=== PATIENT | male | born 1990 | race Caucasian/White ===

== ENCOUNTER 2021-05-07 16:43 | Emergency (ER) | payer OTHER, SELFPAY ==
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
[2021-05-07 16:54] VITALS: BP 124/63; PULSE 123; RESP 16; TEMP 37.7; O2SAT 99
[2021-05-07] MEDS: TETANUS,DIPHTHERIA,AC PERTUSSIS ADULT (0.5 ML) BOOSTRIX IM (17:29)
[2021-05-07] MEDS: cefTRIAXone 1 GM, LIDOCAINE HCL 1% LOCAL INJ 2.1 ML IM (17:30)
== END 2021-05-07 17:45 | disposition home or self-care (01) ==
PROVIDERS: Emergency Provider Nurse Practitioner
DX: L03.113 Cellulitis of right upper limb (principal); Z23 Encounter for immunization
CPT/HCPCS: 73130; 90471; 90715; 96372; 99213; G0463; J0696

== ENCOUNTER 2024-09-24 10:52 | Emergency (ER) | payer OTHER, SELFPAY ==
--- NOTE | ~2024-09-24 | CT_ITS ---
EXAMINATION: CT cervical spine wo con DATE: 09/24/2024 11:45 INDICATION: Midline cervical tenderness post trauma TECHNIQUE: Computed tomography (CT) of the cervical spine was performed without intravenous contrast. Automated exposure control and iterative reconstruction technique were employed. The dose-length pro duct was 439.16 mGy-cm. COMPARISON: None FINDINGS: Mild lower cervical levocurvature. Straightening of the normal cervical doses which could be position al or due to muscle spasm. Likely developmental anterior spinal fusion at C5-C6 with decreased AP dim ension to the vertebral bodies at the level of the small disc space. Vertebral body heights are diana l. No fracture. Mild disc height loss and moderate right-sided and mild left-sided uncovertebral oste oarthritis at C6-C7. Small posterior disc osteophyte complex at C6-C7 resulting in mild central canal stenosis at this level. There is fusion across the left C5-C6 facet joint and severe joint space parviz rowing at the right facet joint that this level. There is additional severe facet osteoarthritis on t he left at C2-C3 and on the right at C4-C5. Mild to moderate facet osteoarthritis and a few additiona l cervical levels. There is moderate neural from stenosis on the left at C2-C3 and mild neural forami nal stenosis bilaterally at C3-C4, C6-C7 and on the right at C4-C5. Cervical soft tissues are unremar kable. Visualized apices of lungs are clear. IMPRESSION: 1. Moderate cervical spondylosis with likely developmental anterior fusion at C5-C6. No acute osseous abnormality. Reviewed, dictated and finalized at location B. IMPRESSION: 1. Moderate cervical spondylosis with likely developmental anterior fusion at C 5-C6. No acute osseous abnormality.
[2024-09-24 10:59] VITALS: BP 154/92; PULSE 95; RESP 18; TEMP 37; O2SAT 100
--- OUTSIDE RECORDS SUMMARY | 2024-09-24 11:40 | XMS_ITS | Clinical Summary ---
Author Organization [facility] Address [address] [place] [address] Care Team Providers Care Finishing Supervisor Name Role Phone Pcp, Josh Lemus Im-Fm Primary Care Provider Unavailable Source Comments [facility],non-owned Affiliates and Associated Physician Practices is amultiple site organization consisting of ambulatory clinics and hospital sitesin [place], [place], [place] and [place]. This disclosure is being madepursuant to the Care Everywhere program and may not contain all information available regarding this patient. Last updated 18.[facility] Allergies No known active allergies Medications * Be aware that medications may not be up to date on this document. Alwaysverify current medications with the patient. Medication Sig Dispensed Refills Start Date End Date Status hydrocortisone, rectal, (ANUSOL-HC) 2.5 % cream Insert into the rectum at bedtime 30 g 12/02/2018 Active Active Problems No known active problems Immunizations Name Administration Dates Next Due TDAP (7yrs+) 11/03/2016 Family History Medical History Relation Name Comments Drug Abuse Father Cancer - Other Maternal Grandmother Other Mother Relation Name Status Comments Father Maternal Grandmother Mother she was murdere d Social History Tobacco Use Types Packs/Day Years Used Date Smoking Tobacco: Never Smokeless Tobacco: Never Alcohol Use Standard Drinks/Week Comments Yes 0 (1 standard drink = 0.6 oz pur e alcohol) rarely Sex and Gender Information Value Date Recorded Sex Assigned at Not on file Gender Identity Not on file Sexual Orientation Not on file Last Filed Vital Signs Vital Sign Reading Time Taken Comments Blood Pressure 128/68 12/02/2018 1:52 PM CDT Pulse 78 12/02/2018 1:52 PM CDT Temperature - - Respiratory Rate - - Oxygen Saturation 99% 12/02/2018 1:52 PM CDT Inhaled Oxygen Concentration - - Weight 83 kg (183 lb) 12/02/2018 1:52 PM CDT Height 180.3 cm (5' 11 ) 12/02/2018 1:52 PM CDT Body Mass Index 25.52 12/02/2018 1:52 PM CDT Plan of Treatment Health Maintenance Due Date Last Done Comments HIV SCREENING 2006 HEPATITIS C SCREENING 03/19/2009 HEPATITIS B VACCINE (1 of 3 - 19+ 3-dose series) 2010 COVID-19 VACCINE ( - 2023-2 5 season) 2024 DEPRESSION SCREENING 06/17/2024 INFLUENZA VACCINE (Season Ended) 2025 DTAP/TDAP/TD VACCINES (2 - T d or Tdap) 11/03/2026 11/03/2016 ZOSTER VACCINE (1 of 2) 2041 HIB VACCINE Aged Out No longer eligi ble based on patient's age to complete this topic HPV VACCINE Aged Out No longer eligi ble based on patient's age to complete this topic MENINGOCOCCAL (Group B) VACC INE SHARED DECISION-MAKING Aged Out No longer eligibl e based on patient's age to complete this topic MENINGOCOCCAL GROUPS A/C/Y/W VACCINE Aged Out No longer eligible b ased on patient's age to complete this topic PNEUMOCOCCAL VACCINE Aged Out No long er eligible based on patient's age to complete this topic Care Teams Finishing Supervisor Relationship Specialty Start Date End Date Josh Gonzáles -Fm PCP - General 01/11/23
--- OUTSIDE RECORDS SUMMARY | 2024-09-24 11:40 | XMS_ITS | Data Portability ---
Author Organization [place] [facility], Mike Magaña Address [address] [place] [id number] Care Team Providers Care Press Hand Name Role Phone MARIANELA AMARAL Primary Care Provider Unavailabl e Assessment No assessment recorded. Plan of Treatment Reminders Order Date Submit Date Provider Last Modified By Organization Details Last Modified Time Details Appointments InPerson; PE, Routine 2024 04:00P M Marianela Amaral MD Not available Not available Not available Lab urinalysi s, dipstick 2023 024 DAWES Cheo, [address] [place], [address], 07/29/2023 14:55:21 C reactive protein, QN, serum or plasma 2023 024 [facility] [place], [address], 07/31/2023 08:23:54 erythrocy te sedimenta tion rate by terrell dunham method 2023 024 [facility], [address] [place] [address], [address], 07/31/2023 08:23:54 Referral dermatolo gist referral 2024 025 [email or web address] [place] [facility] Referral [facility]ators, [address] [place] [address] [place] [address], [place], [address], 09/01/2024 10:03:27 psychiatr ist referral 2024 025 [email or web address] [facility] Referral Coordinators, [address] [facility], [address], [facility] [place], [address], 09/22/2024 13:51:50 dermatolo gist referral 2023 024 [email or web address] [facility], [address] [facility], [address], [place], [address], 12/11/2023 11:11:47 Procedures None recorded. Surgeries None recorded. Imaging None recorded. Medication Orders triamcino lone acetonide 0.1 % topical cream 2024 025 [facility], [address] [place] [address], [id number], 07/15/2024 18:13:49 hydrocort isone 2.5 % topical cream 2024 025 [facility], [address] [place] [address], [id number], 07/15/2024 18:13:49 triamcino lone acetonide 0.1 % topical cream 2023 024 [facility], [address] [place] [address], [id number], 10/11/2023 15:43:38 hydrocort isone 2.5 % topical cream 2023 024 [facility], [address] [place] [address], [id number], 10/11/2023 15:43:38 hydrocort isone 2.5 % topical cream 2023 024 [facility], [address] [place] [address], [id number], 07/29/2023 14:37:54 Patient TargetsNo targets recorded. Patient InstructionsNo instructions recorded. Reason for Referral Pet Care Worker Referral for P soriasis Referring Physician: Marianela Amaral, Family Medicine, Encounter Date: 10/11/2023 Pet Care Worker Referral for P soriasis Referring Physician: Marianela Amaral [facility], Encounter Date: 07/15/2024 Psychiatrist Referral for Ad ult attention deficit hyperactivity disorder Referring Physician: Marianela Amaral [facility], Encounter Date: 07/15/2024 Results Created Date Observation Date Name Description Value Unit Range Abnormal Flag Note LastModifiedBy Organization Detail LastModifiedTime 07/10/19 24 07/11/2023 CBC WITH DIFFE RENTI AL/PL ATELE T WBC 5.9 x10e3 /uL 3.4-10 .8 Not Available [facility] ([facility]) [address] [place], [address], 07/11/2023 13:24:42 07/10/19 24 07/11/2023 CBC WITH DIFFE RENTI AL/PL ATELE T RBC 5.69 x10e6 /uL 4.14-5 .80 Not Available [facility] ([facility]) [address] [place], [address], 07/11/2023 13:24:42 07/10/19 24 07/11/2023 CBC WITH DIFFE RENTI AL/PL ATELE T hemoglobin 17.0 g/dL 13.0-1 7.7 Not Available [facility] ([facility]) [address] [place], [address], 07/11/2023 13:24:42 07/10/1907/11/2023 CBC WITH DIFFE RENTI AL/PL ATELE T hematocrit 50.4 % 37.5-5 1.0 Not Available [facility] ([facility]) [address] [place], [address], 07/11/2023 13:24:42 07/10/19 24 07/11/2023 CBC WITH DIFFE RENTI AL/PL ATELE T MCV 89 fL 79-97 Not Available [facility] ([facility]) [address] [place], [address], 07/11/2023 13:24:42 07/10/19 24 07/11/2023 CBC WITH DIFFE RENTI AL/PL ATELE T MCH 29.9 pg 26.6-3 3.0 Not Available [facility] ([facility]) [address] [facility], [place], [address], 07/11/2023 13:24:42 07/10/19 24 07/11/2023 CBC WITH DIFFE RENTI AL/PL ATELE T MCHC 33.7 g/dL 31.5-3 5.7 Not Available [facility] ([facility]) [address] [place], [address], 07/11/2023 13:24:42 07/10/19 24 07/11/2023 CBC WITH DIFFE RENTI AL/PL ATELE T RDW 12.5 % 11.6-1 5.4 Not Available [facility] ([facility]) [address] [facility], [place], [address], 07/11/2023 13:24:42 07/10/19 24 07/11/2023 CBC WITH DIFFE RENTI AL/PL ATELE T platelets 212 x10e3 /uL 150-45 0 Not Available [facility] ([facility]) [address] [place], [address], 07/11/2023 13:24:42 07/10/1907/11/2023 CBC WITH DIFFE RENTI AL/PL ATELE T neutrophils 65 % not estab. Not Available [facility] ([facility]) [address] [place], [address], 07/11/2023 13:24:42 07/10/19 24 07/11/2023 CBC WITH DIFFE RENTI AL/PL ATELE T lymphs 25 % not estab. Not Available [facility] ([facility]) [address] [place], [address], 07/11/2023 13:24:42 07/10/19 24 07/11/2023 CBC WITH DIFFE RENTI AL/PL ATELE T monocytes 7 % not estab. Not Available [facility] ([facility]) [address] [place], [address], 07/11/2023 13:24:42 07/10/19 24 07/11/2023 CBC WITH DIFFE RENTI AL/PL ATELE T eos 2 % not estab. Not Available [facility] ([facility]) [address] [place], [address], 07/11/2023 13:24:42 07/10/1907/11/2023 CBC WITH DIFFE RENTI AL/PL ATELE T basos 1 % not estab. Not Available [facility] ([facility]) [address] [place], [address], 07/11/2023 13:24:42 07/10/19 24 07/11/2023 CBC WITH DIFFE RENTI AL/PL ATELE T immature cells STOVE TENDER Not Available [facility] ([facility]) [address] [place], [address], 07/11/2023 13:24:42 07/10/19 24 07/11/2023 CBC WITH DIFFE RENTI AL/PL ATELE T neutrophils (absolute) 3.9 x10e3 /uL 1.4-7. 0 Not Available [facility] ([facility]) [address] [place], [address], 07/11/2023 13:24:42 07/10/19 24 07/11/2023 CBC WITH DIFFE RENTI AL/PL ATELE T lymphs (absolute) 1.5 x10e3 /uL 0.7-3. 1 Not Available [facility] ([facility]) [address] [place], [address], 07/11/2023 13:24:42 07/10/19 07/11/2023 CBC WITH DIFFE RENTI AL/PL ATELE T monocytes(ab solute) 0.4 x10e3 /uL 0.1-0. 9 Not Available [facility] ([facility]) [address] [facility], [place], [address], 07/11/2023 13:24:42 07/10/19 24 07/11/2023 CBC WITH DIFFE RENTI AL/PL ATELE T eos (absolute) 0.1 x10e3 /uL 0.0-0. 4 Not Available [facility] ([facility]) [address] [facility], [place], [address], 07/11/2023 13:24:42 07/10/1907/11/2023 CBC WITH DIFFE RENTI AL/PL ATELE T baso (absolute) 0.0 x10e3 /uL 0.0-0. 2 Not Available [facility] ([facility]) [address] [facility], [place], [address], 07/11/2023 13:24:42 07/10/19 24 07/11/2023 CBC WITH DIFFE RENTI AL/PL ATELE T immature granulocytes 0 % not estab. Not Available [facility] ([facility]) [address] [facility], [place], [address], 07/11/2023 13:24:42 07/10/1907/11/2023 CBC WITH DIFFE RENTI AL/PL ATELE T immature grans (abs) 0.0 x10e3 /uL 0.0-0. 1 Not Available [facility] ([facility]) [address] [facility], [place], [address], 07/11/2023 13:24:42 07/10/19 24 07/11/2023 CBC WITH DIFFE RENTI AL/PL ATELE T NRBC STOVE TENDER Not Available [facility] ([facility]) [address] [facility], [place], [address], 07/11/2023 13:24:42 07/10/19 24 07/11/2023 CBC WITH DIFFE ERIC AL/PL ATELE T hematology comments: STOVE TENDER Not Available [facility] ([facility]) [address] [facility], [place], [address], 07/11/2023 13:24:42 07/10/19 24 07/11/2023 COMP. METAB OLIC PANEL (14) glucose 85 mg/dL 70-99 Not Available [facility] ([facility]) [address] [facility], [place], [address], 07/11/2023 13:24:43 07/10/19 24 07/11/2023 COMP. METAB OLIC PANEL (14) BUN 15 mg/dL 6-20 Not Available [facility] ([facility]) [address] [facility], [place], [address], 07/11/2023 13:24:43 07/10/19 24 07/11/2023 COMP. METAB OLIC PANEL (14) creatinine 0.98 mg/dL 0.76-1 .27 Not Available [facility] ([facility]) [address] [facility], [place], [address], 07/11/2023 13:24:43 07/10/19 24 07/11/2023 COMP. METAB OLIC PANEL (14) eGFR 105 mL/mi n/1.7 3 >59 Not Available [facility] ([facility]) [address] [place], [address], 07/11/2023 13:24:43 07/10/19 24 07/11/2023 COMP. METAB OLIC PANEL (14) BUN/creatini ne ratio 15 9-20 Not Available [facility] ([facility]) [address] [place], [address], 07/11/2023 13:24:43 07/10/19 24 07/11/2023 COMP. METAB OLIC PANEL (14) sodium 141 mmol/ L 134-14 4 Not Available [facility] ([facility]) [address] [place], [address], 07/11/2023 13:24:43 07/10/19 24 07/11/2023 COMP. METAB OLIC PANEL (14) potassium 3.8 mmol/ L 3.5-5. 2 Not Available [facility] ([facility]) [address] [place], [address], 07/11/2023 13:24:43 07/10/19 24 07/11/2023 COMP. METAB OLIC PANEL (14) chloride 100 mmol/ L 96-106 Not Available [facility] ([facility]) [address] [place], [address], 07/11/2023 13:24:43 07/10/19 24 07/11/2023 COMP. METAB OLIC PANEL (14) carbon dioxide, total 26 mmol/ L 20-29 Not Available [facility] ([facility] [address] [facility] [place], [address], 07/11/2023 13:24:43 07/10/19 24 07/11/2023 COMP. METAB OLIC PANEL (14) calcium 9.8 mg/dL 8.7-10 .2 Not Available [facility] ([facility] [address] [facility] [place], [address], 07/11/2023 13:24:43 07/10/19 24 07/11/2023 COMP. METAB OLIC PANEL (14) protein, total 7.3 g/dL 6.0-8. 5 Not Available [facility] ([facility]) [address] [facility] [place], [address], 07/11/2023 13:24:43 07/10/19 24 07/11/2023 COMP. METAB OLIC PANEL (14) albumin 5.1 g/dL 4.1-5. 1 Not Available [facility] ([facility]) [address] [facility] [place], [address], 07/11/2023 13:24:43 07/10/19 24 07/11/2023 COMP. METAB OLIC PANEL (14) globulin, total 2.2 g/dL 1.5-4. 5 Not Available [facility] ([facility]) [address] [facility] [place], [address], 07/11/2023 13:24:43 07/10/19 24 07/11/2023 COMP. METAB OLIC PANEL (14) A/G ratio 2.3 1.2-2. 2 above high normal Not Available [facility] ([facility]) [address] [place], [address], 07/11/2023 13:24:43 07/10/19 24 07/11/2023 COMP. METAB OLIC PANEL (14) bilirubin, total 1.1 mg/dL 0.0-1. 2 Not Available [facility] ([facility]) [address] [facility] [place], [address], 07/11/2023 13:24:43 07/10/19 24 07/11/2023 COMP. METAB OLIC PANEL (14) alkaline phosphatase 65 IU/L 44-121 Not Available [facility] ([facility]) [address] [facility] [place], [address], 07/11/2023 13:24:43 07/10/19 24 07/11/2023 COMP. METAB OLIC PANEL (14) AST (SGOT) 30 IU/L 0-40 Not Available [facility] ([facility]) [address] [facility] [place], [address], 07/11/2023 13:24:43 07/10/19 24 07/11/2023 COMP. METAB OLIC PANEL (14) ALT (SGPT) 26 IU/L 0-44 Not Available [facility] ([facility]) [address] [facility] [place], [address], 07/11/2023 13:24:43 07/10/19 24 07/11/2023 LIPID PANEL W/ CHOL/ HDL RATIO cholesterol, total 170 mg/dL 100-19 9 Not Available [facility] ([facility]) [address] [place], [address], 07/11/2023 13:24:43 07/10/19 24 07/11/2023 LIPID PANEL W/ CHOL/ HDL RATIO triglyceride s 41 mg/dL 0-149 Not Available [facility] ([facility]) [address] [place], [address], 07/11/2023 13:24:43 07/10/19 24 07/11/2023 LIPID PANEL W/ CHOL/ HDL RATIO HDL cholesterol 86 mg/dL >39 Not Available [facility] ([facility]) [address] [facility], [place], [address], 07/11/2023 13:24:43 07/10/19 24 07/11/2023 LIPID PANEL W/ CHOL/ HDL RATIO VLDL cholesterol laureano 9 mg/dL 5-40 Not Available [facility] ([facility]) [address] [place], [address], 07/11/2023 13:24:43 07/10/19 24 07/11/2023 LIPID PANEL W/ CHOL/ HDL RATIO LDL chol calc ([facility]) 75 mg/dL 0-99 Not Available [facility] ([facility]) [address] [place], [address], 07/11/2023 13:24:43 07/10/19 24 07/11/2023 LIPID PANEL W/ CHOL/ HDL RATIO comment: STOVE TENDER Not Available [facility] ([facility]) [address] [place], [address], 07/11/2023 13:24:43 07/10/19 24 07/11/2023 LIPID PANEL W/ CHOL/ HDL RATIO T. chol/HDL ratio 2.0 ratio 0.0-5. 0 T. Chol/ HDL Ratio Men Women 1/2 Avg.R isk 3.4 3.3 Avg.R isk 5.0 4.4 2X Avg.R isk 9.6 7.1 3X Avg.R isk 23.4 11.0 Not Available [facility] ([facility]) [address] [facility], [place], [address], 07/11/2023 13:24:43 07/10/19 24 07/11/2023 HEMOG LOBIN A1C hemoglobin A1C 5.0 % 4.8-5. 6 Predi abete s: 5.7 - 6.4 Diabe annie: >6.4 Glyce imelda contr ol for adult s with diabe annie: <7.0 Not Available [facility] ([facility]) [address] [facility], [place], [address], 07/11/2023 13:24:44 07/10/1907/11/2023 HIV AB/P2 4 AG WITH REFLE X HIV Ab/P24 Ag screen Non Reacti ve non reacti ve HIV Negat colton HIV-1 /HIV- 2 antib odies and HIV-1 p24 antig en were NOT detec shruthi. There is no labor atory evide nce of HIV infec tion. Not Available [facility] ([facility]) [address] [facility], [place], [address], 07/11/2023 13:24:44 07/10/1907/11/2023 HCV ANTIB RACHEL hep C virus Ab Non Reacti ve non reacti ve HCV antib rachel alone does not diffe renti ate betwe en previ ously resol newton infec tion and activ e infec tion. Equiv ocal and React colton HCV antib rachel resul ts shoul d be follo wed up with an HCV RNA test to suppo rt the diagn osis of activ e HCV infec tion. Not Available [facility] ([facility]) [address] [facility], [place], [address], 07/11/2023 13:24:45 07/10/19 24 07/11/2023 TSH REFLE X TO T4F TSH 1.260 uIU/m L 0.450- 4.500 Not Available [facility] ([facility]) [address] [facility], [place], [address], 07/11/2023 13:24:46 07/29/19 24 07/30/2023 SEDIM ENTAT ION RATE- WESTE RGREN sedimentatio n rate-westerg willem 2 mm/HR 0-15 Not Available [facility] ([facility]) [address] [facility], [place], [address], 07/31/2023 08:23:54 07/29/19 24 07/30/2023 C-AIDE CTIVE PROTE IN, QUANT C-reactive protein, quant <1 mg/L 0-10 Not Available [facility] ([facility]) [address] [facility], [place], [address], 07/31/2023 08:23:54 07/29/19 24 07/31/2023 URINE CULTU RE, ROUTI NE urine culture, routine Final report Not Available [facility] ([facility]) [address] [facility], [place], [address], 07/31/2023 08:23:55 07/29/19 24 07/31/2023 URINE CULTU RE, ROUTI NE result 1 No growth Not Available [facility] ([facility]) [address] [facility], [place], [address], 07/31/2023 08:23:55 07/29/19 24 07/29/2023 urina lysis , dipst ick Color Yellow Not Available [employer] [address] [place], [address], 07/29/2023 14:29:09 07/29/19 24 07/29/2023 urina lysis , dipst ick Appearance Clear Not Available [employer] [address] [place], [address], 07/29/2023 14:29:07/29/19 24 07/29/2023 urina lysis , dipst ick Leukocytes negati ve Not Available [employer] [address] [place] [address], [phone], 07/29/2023 14:29:07/29/19 24 07/29/2023 urina lysis , dipst ick Nitrites negati ve Not Available [employer] [address] [place] [address], [phone], 07/29/2023 14:29:07/29/19 24 07/29/2023 urina lysis , dipst ick Urobilinogen Normal (0.2) Not Available [employer] [address] [place] [address], [phone], 07/29/2023 14:29:07/29/19 24 07/29/2023 urina lysis , dipst ick Protein negati ve Not Available [employer] [address] [place] [address], [phone], 07/29/2023 14:29:07/29/19 24 07/29/2023 urina lysis , dipst ick pH 7.5 Not Available [employer] [address] [place] [address], [phone], 07/29/2023 14:29:07/29/19 24 07/29/2023 urina lysis , dipst ick Blood small + Not Available [employer] [address] [place] [address], [phone], 07/29/2023 14:29:07/29/19 24 07/29/2023 urina lysis , dipst ick Specific [place] 1.025 Not Available [facility] [address] [place] [address], [phone], 07/29/2023 14:29:07/29/19 24 07/29/2023 urina lysis , dipst ick Ketone negati ve Not Available [employer] [address] [place], [address], 07/29/2023 14:29:09 07/29/19 24 07/29/2023 urina lysis , dipst ick Bilirubin negati ve Not Available [employer] [address] [place], [address], 07/29/2023 14:29:09 07/29/19 24 07/29/2023 urina lysis , dipst ick Glucose negati ve Not Available [employer] [address] [place], [address], 07/29/2023 14:29:09 08/01/19 24 08/02/2023 URINA LYSIS , COMPL ETE specific gravity 1.019 1.005- 1.030 Not Available [facility] ([facility]) [address] [place], [address], 08/02/2023 11:15:54 08/01/19 24 08/02/2023 URINA LYSIS , COMPL ETE pH 7.5 5.0-7. 5 Not Available [facility] ([facility]) [address] [place], [address], 08/02/2023 11:15:54 08/01/19 24 08/02/2023 URINA LYSIS , COMPL ETE urine-color Yellow yellow Not Available [facility] ([facility]) [address] [place], [address], 08/02/2023 11:15:54 08/01/19 24 08/02/2023 URINA LYSIS , COMPL ETE appearance Clear clear Not Available [facility] ([facility]) [address] [place], [address], 08/02/2023 11:15:54 08/01/19 24 08/02/2023 URINA LYSIS , COMPL ETE WBC esterase Negati ve negati ve Not Available [facility] ([facility]) [address] [facility], [place], [address], 08/02/2023 11:15:54 08/01/19 24 08/02/2023 URINA LYSIS , COMPL ETE protein Negati ve negati ve/tra ce Not Available [facility] ([facility]) [address] [facility], [place], [address], 08/02/2023 11:15:54 08/01/19 24 08/02/2023 URINA LYSIS , COMPL ETE glucose Negati ve negati ve Not Available [facility] ([facility]) [address] [place], [address], 08/02/2023 11:15:54 08/01/19 24 08/02/2023 URINA LYSIS , COMPL ETE ketones Negati ve negati ve Not Available [facility] ([facility]) [address] [place], [address], 08/02/2023 11:15:54 08/01/19 24 08/02/2023 URINA LYSIS , COMPL ETE occult blood Negati ve negati ve Not Available [facility] ([facility]) [address] [place], [address], 08/02/2023 11:15:54 08/01/19 24 08/02/2023 URINA LYSIS , COMPL ETE bilirubin Negati ve negati ve Not Available [facility] ([facility]) [address] [place], [address], 08/02/2023 11:15:54 08/01/19 24 08/02/2023 URINA LYSIS , COMPL ETE urobilinogen ,semi-qn 1.0 mg/dL 0.2-1. 0 Not Available [facility] ([facility]) [address] [place], [address], 08/02/2023 11:15:54 08/01/19 24 08/02/2023 URINA LYSIS , COMPL ETE nitrite, urine Negati ve negati ve Not Available [facility] ([facility]) [address] [facility], [place], [address], 08/02/2023 11:15:54 08/01/19 24 08/02/2023 URINA LYSIS , COMPL ETE microscopic examination Commen t Micro scopi c follo ws if indic ated. Not Available [facility] ([facility]) [address] [facility], [place], [address], 08/02/2023 11:15:54 08/01/19 24 08/02/2023 URINA LYSIS , COMPL ETE microscopic examination See below: Micro scopi c was indic ated and was perfo rmed. Not Available [facility] ([facility]) [address] [facility], [place], [address], 08/02/2023 11:15:54 08/01/19 24 08/02/2023 URINA LYSIS , COMPL ETE WBC None seen /hpf 0 - 5 Not Available [facility] ([facility]) [address] [facility], [place], [address], 08/02/2023 11:15:54 08/01/19 24 08/02/2023 URINA LYSIS , COMPL ETE RBC None seen /hpf 0 - 2 Not Available [facility] ([facility]) [address] [facility], [place], [address], 08/02/2023 11:15:54 08/01/19 24 08/02/2023 URINA LYSIS , COMPL ETE epithelial cells (non renal) None seen /hpf 0 - 10 Not Available [facility] ([facility]) [address] [facility], [place], [address], 08/02/2023 11:15:54 08/01/19 24 08/02/2023 URINA LYSIS , COMPL ETE epithelial cells (renal) STOVE TENDER Not Available [facility] ([facility]) [address], [place], [address], 08/02/2023 11:15:54 08/01/19 24 08/02/2023 URINA LYSIS , COMPL ETE casts None seen /lpf none seen Not Available [facility] ([facility]) [address], [place], [address], 08/02/2023 11:15:54 08/01/19 24 08/02/2023 URINA LYSIS , COMPL ETE cast type STOVE TENDER Not Available [facility] ([facility]) [address], [place], [address], 08/02/2023 11:15:54 08/01/19 24 08/02/2023 URINA LYSIS , COMPL ETE crystals STOVE TENDER Not Available [facility] ([facility]) [address], [place], [address], 08/02/2023 11:15:54 08/01/19 24 08/02/2023 URINA LYSIS , COMPL ETE crystal type STOVE TENDER Not Available [facility] ([facility]) [address], [place], [address], 08/02/2023 11:15:54 08/01/19 24 08/02/2023 URINA LYSIS , COMPL ETE mucus threads STOVE TENDER Not Available [facility] ([facility]) [address], [place], [address], 08/02/2023 11:15:54 08/01/19 24 08/02/2023 URINA LYSIS , COMPL ETE bacteria None seen none seen/f ew Not Available [facility] ([facility]) [address], [place], [address], 08/02/2023 11:15:54 08/01/19 24 08/02/2023 URINA LYSIS , COMPL ETE yeast STOVE TENDER Not Available [facility] ([facility]) [address], [place], [address], 08/02/2023 11:15:54 08/01/19 24 08/02/2023 URINA LYSIS , COMPL ETE trichomonas STOVE TENDER Not Available [facility] ([facility]) [address] [facility], [place], [address], 08/02/2023 11:15:54 08/01/19 24 08/02/2023 URINA LYSIS , COMPL ETE comment STOVE TENDER Not Available [facility] [facility] [address], [place], [address], 08/02/2023 11:15:54 09/15/19 25 09/16/2024 QUANT IFERO N-TB GOLD PLUS quantiferon incubation Incuba tion perfor med. Not Available [facility] ([facility]) [address], [place], [address], 09/17/2024 06:20:45 09/15/19 25 09/16/2024 QUANT IFERO N-TB GOLD PLUS quantiferon criteria Commen t Quant iFERO N-TB Gold Plus is a quali tativ e indir ect test for M tuber culos is infec tion (incl uding disea se) and is inten ded for use in conju nctio n with risk asses sment , radio graph y, and other medic al and diagn ostic evalu ation s. The Quant iFERO N-TB Gold Plus resul t is deter mined by subtr actin g the Nil value from eithe r TB antig en (Ag) value . The Mitog en tube serve s as a contr ol for the test. Not Available [facility] ([facility]) [address], [place], [address], 09/17/2024 06:20:45 09/15/19 25 09/17/2024 QUANT IFERO N-TB GOLD PLUS quantiferon TB1 Ag value 0.03 IU/mL Not Available [facility] ([facility]) [address] [place], [address], 09/17/2024 06:20:45 09/15/19 25 09/17/2024 QUANT IFERO N-TB GOLD PLUS quantiferon TB2 Ag value 0.03 IU/mL Not Available [facility] ([facility]) [address], [place], [address], 09/17/2024 06:20:45 09/15/19 25 09/17/2024 QUANT IFERO N-TB GOLD PLUS quantiferon nil value 0.03 IU/mL Not Available [facility] ([facility]) [address], [place], [address], 09/17/2024 06:20:45 09/15/19 25 09/17/2024 QUANT IFERO N-TB GOLD PLUS quantiferon mitogen value >10.00 IU/mL Not Available [facility] ([facility]) [address], [place], [address], 09/17/2024 06:20:45 09/15/19 25 09/17/2024 QUANT IFERO N-TB GOLD PLUS quantiferon- TB gold plus Negati ve negati ve No respo nse to M salty marinoos is antig ens detec shruthi. Infec tion with M salty marinoos is is unlik fabián, but high risk indiv idual s shoul d be consi dered for addit ional testi ng (ATS/ IDSA/ CDC Clini laureano Pract ice Guide lines , 2017) . The refer ence range is an Antig en minus Nil resul t of <0.35 IU/mL . Chemi lumin escen ce immun oassa y metho dolog y Not Available [facility] ([facility]) [address], [place], [address], 09/17/2024 06:20:45 09/15/19 25 09/15/2024 TEST CODE LAGUNAS E test code change Commen t Pleas e note that the Micro biolo gy test code was eli ed to refle ct the speci men sourc e or trans port recei [place]. Not Available [facility] ([facility]) [address], [place], [address], 09/17/2024 06:20:46 07/10/19 24 07/10/2023 elect rocchirag diogr am No observ ation record ed. [id number] Learning Support Teacher [address] [facility], [place], [address], 07/12/2023 15:50:57 07/19/19 24 07/10/2023 elect rocar diogr am No observ ation record ed. BARCODE Not Available 2023 11:42:14 Result Notes None recorded. 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 134889862 Active 2023 Ya Montiel lizz[place], [place] - [facility] 4 10:37:01 Polyp of nasal cavity 800540477 Active 2023 Yayvonne Montiel null, [place] - [facility] 4 10:37:15 Psoriasi s 5905441 Active 2023 Ya Montiel [place] - [facility] 4 10:37:25 Chronic back pain 686127748 Active 2023 UPPER BACK PAIN Ya Montiel null[place] - [facility] 4 10:37:58 Anxiety 52597852 Active 2023 Josefina Guillermo null, [place] - [facility] 4 12:29:18 Generali zed anxiety disorder 62299114 Active Marianela Amaral MD [address], [facility] [place], [address] , [place] - [facility] 4 14:43:30 Attentio n deficit hyperact ivity disorder 010389235 Completed 202110/03/2023 ADHD - Attentio n deficit disorder with hyperact ivity; PROBABIL ITY: 0 SENSIT IVITY: 0.0 Conf irmation : Confirme d Annota tedDispl ay: ADHD - Attentio n deficit disorder with hyperact ivity Cl assifica tion: Medical Attentio n deficit hyperact ivity disorder ; PROBABIL ITY: 0 SENSIT IVITY: 0.0 Conf irmation : Confirme d Annota tedDispl ay: ADHD Cla ssificat ion: Medical Lifecycl eDateTim e: 18:00:00 +00:00 Not Available [facility] 4 15:08:23 Polyp of nasal cavity and/or nasal sinus 184889578 Active 2021 Polyp of nasal cavity and/or nasal sinus; PROBABIL ITY: 0 SENSIT IVITY: 0.0 Conf irmation : Confirme d Annota tedDispl ay: Nasal polyp Cl assifica tion: Medical Lifecycl eDateTim e: 20:12:59 +00:00 Not Available [facility] 4 15:08:41 Backache 468049498 Active 2021 Backache ; PROBABIL ITY: 0 SENSIT IVITY: 0.0 Conf irmation : Confirme d Annota tedDispl ay: Upper back pain Cla ssificat ion: Medical Lifecycl eDateTim e: 20:34:04 +00:00 Not Available [facility] 4 15:08:45 Problem Notes None recorded. Procedures Surgical History Date Name Laterality Status Provider Name and Address Organization Details Recorded Time Hernia Repair completed Ya Montiel [place] - [facility] 07/07/2023 10:42:46 Imaging Results Imaging Date Name Status LastModified by Organization Details LastModified Time 07/10/2023 electrocardiogram completed [email or web address] [facility] [address] [place], [address], 07/12/2023 15:50:57 07/10/2023 electrocardiogram completed [facility] Informa tion not available 07/19/2023 11:42:14 Procedure Notes None recorded. Medical Equipment None Reported. Allergies Allergen ID Allergen Name Allergen Category Reaction Reaction Severity Criticality Documentation Date Start Date Code Code System Note Provider Name and Address Organization Details Recorded Time 449537 No Allergy Informati on Available Not available Not available Not available Not available 10/03/2023 89438 UNK Comme nt: React ion Class : Aller gy; Not Available [facility] 4 14:51:29 No known drug allergies Medications Name Sig Start Date Stop Date Status Note LastModified by Organization Details LastModified Time Adderall 20 mg tablet 09/16 completed Disconti nueDate: 09/17/2019 3:11:00 PM Disco ntinueTy pe: User Manual DC StopT ype: Physicia n Stop Fareed Wilmakika Thompson umber: [id number] T otalRefi lls: 0 Consta ntIndica tor: Yes CSAS chedule: 2 active _status_ dt_tm: 0 3:54:03 PM Not Available Not Available Not Available miconazol e nitrate 2 % topical cream 1 appl Topical bid 09/16 completed Disconti nueDate: 09/17/2019 3:15:00 PM Disco ntinueTy pe: User Manual DC StopT ype: Physicia n Stop Fareed Thompson umber: [id number] S cheduled PRN: No Total Refills: 0 Consta ntIndica tor: Yes CSAS chedule: 0 active _status_ dt_tm: 9 10:57:48 AM Not Available Not Available Not Available Diflucan 150 mg tablet 1 tab PO every 3 days for 2 doses 09/16 completed Disconti nueDate: 09/17/2019 3:15:00 PM Disco ntinueTy pe: User Manual DC StopT ype: Physicia n Stop Fareed Thompson umber: [id number] S cheduled PRN: No Total Refills: 0 Consta ntIndica tor: Yes CSAS chedule: 0 active _status_ dt_tm: 9 11:01:21 AM Not Available Not Available Not Available triamcino lone acetonide 0.1 % topical cream APPLY A THIN LAYER TO THE AFFECTED AREA(S) BY TOPICAL ROUTE 2 TIMES PER DAY. Avoid the face active Not Available Not Available No t Available dextroamp hetamine- amphetami ne ER 20 mg 24hr capsule,e xtend release 1 cap(s) Oral qam 10/28 completed Disconti nueDate: 0 10:24:00 AM Disco ntinhelenTy pe: User Manual DC StopT ype: Physicia n Stop Fareed Wilmakika karsontionAntonieta umber: [id number] S cheduled PRN: No Total Refills: 0 Consta ntIndica tor: Yes CSAS chedule: 2 active _status_ dt_tm: 09/17/2019 3:14:53 PM Not Available Not Available Not Available hydrocort isone 2.5 % topical cream APPLY A THIN LAYER TO THE AFFECTED AREA(S) BY TOPICAL ROUTE 2 TIMES PER DAY active Not Available Not Available No t Available mupirocin 2 % topical ointment Apply a thin layer to affected skin BID for 5-7 days 05/25 completed StopType : Physicia n Stop Fareed Wilmakika karsontionAntonieta umber: [id number] T otalRefi lls: 0 Consta ntIndica tor: Yes CSAS chedule: 0 active _status_ dt_tm: 2 7:27:19 AM Not Available Not Available Not Available Vitamin D2 1,250 mcg (50,000 unit) capsule Take 1 capsule every week by oral route. 07/29 completed Not Available Not Available Not Available fluticaso ne propionat e 50 mcg/actua tion nasal spray,zan pension 2 spray(s) Nasal daily 08/16 completed StopType : Physicia n Stop Fareed Wilmakika karsontionAntonieta umber: [id number] T otalRefi lls: 1 Consta ntIndica tor: Yes CSAS chedule: 0 active _status_ dt_tm: 06/12/20 19 3:27:47 PM Not Available Not Available Not Available Ritalin LA 20 mg capsule,e xtended release 1 cap(s) Oral qam 08/16 completed StopType : Physicia n Stop Fareed Wilmakika karsontionN umber: [id number] S cheduled PRN: No Total Refills: 0 Consta ntIndica tor: Yes CSAS chedule: 2 active _status_ dt_tm: 0 10:24:57 AM Not Available Not Available Not Available Miralax 17 gm Oral daily 05/22 completed StopType : Physicia n Stop Fareed [facility]: [id number] T Anjel lls: 3 Joela ntCarolinakarson tor: Yes CSAS chedule: 0 active _status_ dt_tm: 9 10:57:48 AM Not Available Not Available Not Available Vitals Date Recorded Body height Body mass index (BMI) Body weight Body temperature Heart rate Oxygen saturation Oxygen saturation in Arterial blood by Pulse oximetry Systolic blood pressure Diastolic blood pressure Provider Name and Address Organization Details Last Updated DateTime 4 180.34 cm 24.8 kg/m2 29261 g 98 [degF] 80 /min 97 % 97 % 114 mm[Hg] 72 mm[Hg] Rosy Rizvi [place] [facility] 4 13:53:56 Date Recorded Body height Body mass index (BMI) Body weight Body temperature Oxygen saturation Oxygen saturation in Arterial blood by Pulse oximetry Heart rate Systolic blood pressure Diastolic blood pressure Provider Name and Address Organization Details Last Updated DateTime 4 180.34 cm 24.7 kg/m2 56576.2 9 g 98.3 [degF] 95 % 95 % 100 /min 124 mm[Hg] 81 mm[Hg] Rosy Rizvi [place] [facility] 4 14:22:42 Date Recorded Body height Body mass index (BMI) Body weight Heart rate Body temperature Oxygen saturation Oxygen saturation in Arterial blood by Pulse oximetry Systolic blood pressure Diastolic blood pressure Provider Name and Address Organization Details Last Updated DateTime 5 180.34 cm 26.2 kg/m2 62758.3 7 g 85 /min 97.3 [degF] 100 % 100 % 121 mm[Hg] 73 mm[Hg] Raymondcortez Ken [place] [facility] 5 18:03:18 Social History Question Answer Notes LastModified by Organizat ion Details LastModified Time Tobacco Smoking Status Former Smoker Ya moreau [place] [facility] 07/07/2023 10:40:30 What Is Your Level Of Alcohol Consumption? Occasional [email or web address] Information not available 07/07/2023 In The 14 Days Before Symptom Onset, Have You Had Close Contact With A Laboratory-co nfirmed COVID-19 While That Case Was Ill? No Information not available 07/10/2023 Have You Been To An Area Known To Be High Risk For COVID-19? No Information not available 07/10/2023 When Did You Quit Smoking? 6-10yearssince glenn [email or web address] Information not available 07/10/2023 Cigar Smoking No FORMER BLUNTS [email or web address] Information not available 07/07/2023 Do You Or Have You Ever Used Any Other Forms Of Tobacco Or Nicotine? No [email or web address] Information not available 07/07/2023 Sex: Unknown Functional Status None recorded. Mental Status None recorded. Family History Relationship Description Onset Age of this Age Resolved Age Notes LastModified by Organization Details LastModified Time Maternal Grandmother Leukemia [email or web address] Not available 06/18 10:38:37 Notes:Grandmother (M): García uribe Medical History No medical history recorded. Immunizations Vaccine Type Date Status Note Provider Nam e and Address Organization Details Recorded Time influenza, unspecified formulation 9 completed Josefina Mima [place] [facility] 07/10/2023 12:26:12 Influenza, MDCK, quadrivalent, PF 2 completed Josefina Mima null, [place] [facility] 07/10/2023 12:26:12 COVID-19, mRNA, LNP-S, PF, 30 mcg/0.3 mL dose 1 completed Josefina Mima null, [place] [facility] 07/10/2023 12:26:12 COVID-19, mRNA, LNP-S, bivalent, PF, 30 mcg/0.3 mL dose 2 completed Josefina Mima null, [place] [facility] 07/10/2023 12:26:12 Influenza, split virus, trivalent, preservative 1 completed Josefina Mima null, [place] [facility] 07/10/2023 12:26:12 Tdap 4 completed Marianela Amaral MD [address], [facility] [place], [address], [place] [facility] 10/11/2023 15:43:38 Past Encounters Encounter ID Performer Location Encounter Start Date Encounter Closed Date Diagnosis/Indication Diagnosis SNOMED-CT Code Diagnosis ICD10 Code Diagnosis Note [id number] MD Subha Shen s [address] [place] [address] 07/29/2023 13:46:53 07/30/2023 10:42:38 Adult health examination 820633647 Z00.00 Need discussion of healthy lifestyleN eed discussion of vaccines Psoriasis 5656687 L40.9 Much better. Hydrocorti sone for face and intertrigi nous regions. Gave info for Derm referral so he can call to schedule Abdominal pain 65364006 R10.9 Likely benign, but with ?blood per rectum vs from psoriasis, labs as below to evaluate for IBD Neck pain 39749604 M54.2 Likely musculoske letal - will need more discussion . Less likely thoracic outlet syndrome Generalize d anxiety disorder 38011633 F41.1 Continue to work with therapist - requesting records and will also need more discussion of possible ADHD diagnosis and if/how this was evaluated for. F/u in 2-3 mo, sooner if needed. [id number] WILLIAN Riveraenter s [address] [place] [address] 07/10/2023 12:23:06 07/12/2023 12:49:01 History of cardiac anomaly 407691864 Z87.74 Patient is a poor historian regarding cardiology past. EKG sinus skip in office today with no present cardiac symptoms. F/U with cardiology for potential further testing, if warranted. Psoriasis 1332886 L40.9 Restart previously prescribed triamcinol one. Extensive time spent discussing safe efficacy of medication -being sure to avoid contact with eyes, applying small amounts to start, and being sure to take a break of at least a week in between each 1-2 weeks of use. Use only the smallest amount necessary. Has upcoming appointmen t on 07/29. Assess triamcinol one usage at that time. This medication is only to be used until patient sees dermatolog ist. Derm to take control of psoriasis treatment when patient is able to get in for referral appointmen t. Adult heal th examination 515174296 Z00.00 Labs drawn in preparatio n for his physical next week in clinic [id number] Srini Mascorro s [address] [place] [address] 08/01/2023 16:11:20 08/01/2023 16:38:44 [id number] MD Kalina Shenenter s [address] [place] [address] 10/11/2023 14:17:02 10/15/2023 08:13:33 Psoriasis 4476631 L40.9 Much better. Hydrocorti sone for face and intertrigi nous regions. Gave info for Derm referral so he can call to schedule Active or passive immunization 672756070 Z23 Adult atte ntion deficit hyperactivity disorder 783086395 F90.9 Again offered psychiatry referral for diagnosis but he declines at this time. Generalize d anxiety disorder 38302541 F41.1 Continue to work with therapist. F/u in the spring for physical, sooner if needed [id number] MD Kalina Shenenter s [address] [place] [address] 07/15/2024 17:55:04 07/16/2024 10:42:45 Psoriasis 0177341 L40.9 Refill creams. New derm referral to be close to home. Adult atte ntion deficit hyperactivity disorder 820385927 F90.9 Desires psychiatry referral for diagnostic evaluation . We discussed that if diagnosis is made and becomes stabilized on meds, can return here for management We also discussed books on adult ADHD to help with non-pharma cologic management of attention symptoms Generalize d anxiety disorder 33506937 F41.1 Continue to work with therapist. F/u in the spring for physical, sooner if needed Health see queta behavior 386387642 Z76.89 [id number] Seema Link Mascorro s [address] [place] [address] 09/14/2024 16:08:11 09/14/2024 16:41:03 Health Concerns Section Related Observation LastModified by Organization Detai ls LastModified Time None Recorded Concern Status LastModified by Organization Details LastModified Time None Recorded Advance Directives Directive None Recorded Payers Encounter Date Sequence Insurance Name Policy Number Policy Ricci Covered Member ID Ricci Member ID Guarantor Name 07/29/2023 1 [employer] - [place] - [facility] [id number] Jose Antonio Lucas [id number] Jose Antonio Lucas 08/01/2023 1 [employer] - [employer] [facility] [id number] Jose Antonio J Lance [id number] Jose Antonio J Lance 10/11/2023 1 [employer] - [employer] - P [id number] Jose Antonio J Lance [id number] Jose Antonio J Lance 07/15/2024 1 [employer] - [employer] - P [id number] Jose Antonio J Lance [id number] Jose Antonio J Lance 09/14/2024 1 R - [employer] - [facility] [id number] Jose Antonio J Lance [id number] Jose Antonio Lucas Notes Date Note Type Note Provider Name and Address Organization Details Recorded Time 07/29/2023 text/html 33 yo male here for physical however he has several concerns to address --Psoriasis - now affecting skin around the eyes. Prescribed triamcinolone and referred to Derm. Facial lesions, testicular lesions are much improved. He has not yet heard anything from that referral --Unknown heart problem as a child, does not remember any details. Was recently referred to cardiology and has an appointment. Normal EKG last visit --Neck pain with heavy breathing - on the left side. Tight sensation - hard to explain. Tenderness when pinching the skin. No injury that he can recall --Lower abdominal pain - tenderness with palpation infraumbilical region. Intermittent, unpredictable. He feels a moving sensation under the skin. Up to 3/10.Associated urinary frequency sometimes with small volumes. Mild dysuria. No hematuria.No diarrhea or constipation. Does sometimes have blood on toilet paper when he wipes.Started about 2 months ago.No known family h/o bowel or bladder problems, but family did not take care of himself. --Intermittent pain/pressure in right inguinal region. Unpredictable.Not increased with coughing.Started a couple of months ago. --Toe pain but he is not worried about this Caffiene - energy drink every morning, occasional coffee Seeing a therapist for anxietyRequests medication for ADHDReferred for sleep study in the past Exercise: boxing. Tolerates hours-long workouts without any of the above symptomsTobacco: neverAlcohol: 12 beers per weekMarijuana: 2 joints per day Marianela Amaral MD [address], [place], [address], [place] [facility] 07/29/2023 14:55:17 10/11/2023 text/html 33 yo male here for f/u on --Psoriasis - now affecting skin around the eyes. Prescribed triamcinolone and referred to Derm. He missed his appointment with the cutting torch operator - needs someone in [place], [place]. --Questions about ADHD - therapist has mentioned thought of medication. He is not terribly interested in referral right now, does not want any medication unless necessary. --Lower abdominal pain - this is getting better.Labs for inflammation normal/negative. Nutrition: working to increase fruits/vegExercise: boxing. Tolerates hours-long workouts without any of the above symptomsTobacco: neverAlcohol: 12 beers per weekMarijuana: 2 joints per dayTdap: unsure Marianela Aamral MD [address], [place], [address], [place] - [facility] 10/11/2023 15:44:43 07/15/2024 text/html 34 yo male here for f/u on --Psoriasis - now affecting skin around the eyes. Prescribed triamcinolone and referred to Derm but he never did get seen. --Questions about ADHD - therapist has mentioned thought of medication. Worries that motivation is lacking, hard to stay focused and active.Does have MARCUS and is working with a therapist Stress with moving into new home - has been busy. Recently got engaged - happy about this Marianela Amaral MD [address], [place], [address], [place] [facility] 07/15/2024 18:24:52
[2024-09-24] MEDS: IBUPROFEN 400 MG TABLET 800 MG PO (11:54)
[2024-09-24] MEDS: ACETAMINOPHEN 500 MG TABLET 1000 MG PO (11:55)
[2024-09-24] MEDS: methocarbamoL 750 MG TABLET 1500 MG PO (11:55)
--- NOTE | 2024-09-24 12:22 | ED.GENADULT ---
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 He attempted to duct underneath an I-beam minutes so shaky with his head he headed with his neck. He now has pain when he moves his head. Denies head trauma/loss of consciousness. He denies weakness, tingling neurologic deficits. He is accompanied by several managers from his company Related Data Allergies Allergy/AdvReac Type Severity Reaction Status Date / Time No Known Allergies Allergy Unknown Verified 09/24/24 10:53 [facility] Past Medical History Medical History No significant medical problems Surgical History Surgical History No significant past surgical history Social History Social History Living arrangements: with family Occupation/Education: occupation Additional occupation/education comments: [employer] Gender identity (if verbalized by the patient): Male Exam Narrative: APPEARANCE: No apparent distress. Head: atraumatic. EYES: EOMI, NOSE: Atraumatic NECK: Midline Tenderness to palpation over C7-T1, tenderness palpation over the right paracervical muscles RESPIRATORY: No increased rate of breathing CARDIOVASCULAR: RRR, ABDOMINAL: Non-distended MUSCULOSKELETAl: No obvious deformities NEURO: Alert. Cranial nerves 2-12 grossly intact. Sensation light touch, motor function cerebellar function intact for 4 extremities. Gait exam was normal. SKIN:: Warm, dry. Normal color PSYCHIATRIC: Normal affect Course Vital Signs Vital signs: Vital Signs Temperature 98.6 F 09/24/24 10:59 Pulse Rate 95 09/24/24 10:59 Respiratory Rate 18 09/24/24 10:59 Blood Pressure 154/92 H 09/24/24 10:59 Pulse Oximetry 100 09/24/24 10:59 Oxygen Delivery Room Air 09/24/24 10:59 Temperature 98.6 F 09/24/24 10:59 Pulse Rate 95 09/24/24 10:59 Respiratory Rate 18 09/24/24 10:59 Blood Pressure 154/92 H 09/24/24 10:59 Pulse Oximetry 100 09/24/24 10:59 Oxygen Delivery Room Air 09/24/24 10:59 Medical Decision Making MDM Narrative Medical decision making narrative: -Course: 34-year-old male presenting with neck pain after trying to to duck under an I-beam while at work. CT was negative for any bony injuries. Neurologic exam was normal. Patient was treated with NSAIDs and muscle relaxers. He will be discharged follow-up with his employee health team. Given return precautions. -DDX includes but is not limited to: Bony injury, soft tissue injury normal spasm Vital Signs Vital Signs: Vital Signs Temperature 98.6 F 09/24/24 10:59 Pulse Rate 95 09/24/24 10:59 Respiratory Rate 18 09/24/24 10:59 Blood Pressure 154/92 H 09/24/24 10:59 Pulse Oximetry 100 09/24/24 10:59 Oxygen Delivery Room Air 09/24/24 10:59 Temperature 98.6 F 09/24/24 10:59 Pulse Rate 95 09/24/24 10:59 Respiratory Rate 18 09/24/24 10:59 Blood Pressure 154/92 H 09/24/24 10:59 Pulse Oximetry 100 09/24/24 10:59 Oxygen Delivery Room Air 09/24/24 10:59 Discharge Plan Discharge Clinical Impression: Neck pain Patient Disposition: Home Condition: Stable Instructions: Antibiotic Form, Cervical Strain (DC) Additional Instructions: You were seen in the emergency department for neck pain. Your CT did not reveal any bony injuries. Please follow-up with your employee health team for further management. If you develop any new symptoms such as severe pain, weakness your arms or legs, or any new symptoms please return to the ED for re-evaluation. Patient Language: Hebrew Prescriptions: No Action amoxicillin-pot clavulanate [Augmentin] 875-125 mg tablet 1 tablet PO Q12H Qty: 20 0RF Follow-up/Referrals: Janet,Earl Nuñez MD [Primary Care Provider] -
== END 2024-09-24 12:35 | disposition home or self-care (01) ==
PROVIDERS: Emergency Provider Emergency Medicine; PCP Family Medicine
DX: S19.9XXA Unspecified injury of neck, initial encounter (principal); W22.8XXA Striking against or struck by other objects, initial encounter
CPT/HCPCS: 72125; 99283; 99284; A9270